=== PATIENT | male | born 1950 | race Caucasian/White ===

== ENCOUNTER 2021-05-01 15:10 | Inpatient (IN) | payer MEDICARE, OTHER ==
[~2021-05-01] VITALS: Ht 167.6 cm; Wt 54.0 kg
--- NOTE | 2021-05-01 15:41 | NUR ---
PT IS IN ROOM #2B. DR JACKSON EVALUATED THE PT.
--- NOTE | 2021-05-01 17:50 | NUR ---
REPORT WAS GIVEN TO RN MHU. PT WAS TRANSFERED TO ROOM #145 a.
[2021-05-01] MEDS ORDERED: LORAZEPAM 1 MG TABLET PO PRN (18:45)
[2021-05-01] MEDS ORDERED: MAG HYDROX/AL HYDROX/SIMETH 30 ML LIQUID UDC PO PRN (18:45)
[2021-05-01] MEDS ORDERED: MAGNESIUM HYDROXIDE 30 ML LIQUID UDC PO PRN (18:45)
[2021-05-01] MEDS ORDERED: ACETAMINOPHEN 325 MG TABLET PO PRN (18:45)
[2021-05-01] MEDS ORDERED: TEMAZEPAM 7.5 MG CAPSULE PO PRN (18:45)
[2021-05-01 18:54] VITALS: BP 165/72
--- NOTE | 2021-05-01 19:30 | NUR ---
GPS: ADMISSION NOTES> Patient is a 70 year old male , brought to the ED on a 5150 for DTS. Per hold, [facility]. Patient placed on hold by real estate utilization officer when patient made a statement of wanting to kill himself by banging head on the wall or going to the railway. Upon receiving patient, he is uncooperative and wanting to go over his dirty clothes, redirected patient. BEAD WIRE INSULATOR offered him shower and he comply. Upon face to face evaluation in his room, the patient adamantly denied being suicidal. The patient states of having no memory of the event. Patient noted with forgetfulness as he keeps on asking who the interviewer is and where he is at. Oriented patient on the safety rules in the unit and the Plan of care that will be initiated. Patient denies of any past medical history and refused any flu or PNA vaccine at this time. Patient skin intact. Along the interview, patient made a comment that he is tired and wanted to sleep. Patient went to bed w/o wearing his pants so instructed given to put his pants on , he just nodded however didn't comply. Patient safety kept in place with bed alarms on and s. Advisement given to patient together with patient rights handbook. Patient then on went to sleep.
[2021-05-02 08:00] VITALS: BP 153/86
[2021-05-02 08:01] LABS: BILIRUBIN,TOTAL 0.8 mg/dL (0.2-1.0); CREATININE 0.8 mg/dL (0.6-1.3); POTASSIUM 3.9 mmol/L (3.5-5.1); TOTAL PROTEIN, SERUM 6.7 g/dL (6.4-8.2)
[2021-05-02] MEDS: ESCITALOPRAM OXALATE 10 MG TABLET PO SCH (09:39)
--- NOTE | 2021-05-02 15:35 | NUR ---
patient denies he taking any medication at home. no family in the record.
[2021-05-02 16:54] VITALS: BP 105/47
--- NOTE | 2021-05-02 18:14 | NUR ---
Patient is awake and responding to his name, impaired judgment, resistant with nursing care, assisting him with ADL's, bizarre behavior, urinating on self, pacing in his room naked, redirected and reoriented during shift, setting limits, but unable to follow directions, pressured and slurred speech, gets easily angry when redirected, poor insight, continue to monitor for safety, continue with treatment plan.
[2021-05-02 20:20] VITALS: BP 142/59
[2021-05-02] MEDS: QUETIAPINE FUMARATE 25 MG TABLET PO SCH (20:51)
[2021-05-03 07:30] VITALS: BP 115/70
[2021-05-03 08:17] LABS: MEAN CORPUSCULAR HEMOGLOBIN 28.2 uug (23.8-33.4); MEAN CORPUSCULAR VOLUME 86.7 fL (73.0-96.2); PLATELET COUNT (AUTO) 216 K/uL (152-348)
[2021-05-03] MEDS: ESCITALOPRAM OXALATE 10 MG TABLET PO SCH (08:40)
--- NOTE | 2021-05-03 10:11 | NUR ---
GPS:RECEIVED PT ON BED, AWAKE AND VERBALLY RESPONSIVE WHEN ASKED. PT COMPLIANT WITH CARE AND MEDICATIONS. PT ISOLATIVE IN THE ROOM, COVERED HEAD WITH BLANKET. ENCOURAGED TO PARTICIPATE WITH GROUP THERAPY. DENIES ANY PAIN OR DISCOMFORT. DENIES ANY SUICIDAL IDEATION AT THIS TIME.
[2021-05-03 15:26] VITALS: BP 115/59
--- NOTE | 2021-05-03 18:21 | NUR ---
GPS; PT STAYED ON BED THE WHOLE TIME. NAKED AND DID NOT EVEN CARE TO GET DRESS AFTER ENCOURAGED. PT LOOKS WITHDRAWN, ISOLATIVE. DENIES ANY PAIN OR DISCOMFORT. DENIES SUICIDAL IDEATION. NO AGITATION AND NOT IN DISTRES AT THIS TIME. COMPLIANT WITH MEDS.
[2021-05-03 20:00] VITALS: BP 132/72
[2021-05-03] MEDS: QUETIAPINE FUMARATE 25 MG TABLET PO SCH (20:13)
[2021-05-04 07:47] VITALS: BP 139/80
[2021-05-04] MEDS: ESCITALOPRAM OXALATE 10 MG TABLET PO SCH (08:00)
--- NOTE | 2021-05-04 11:45 | NUR ---
JACQUELINE Admit Source: Pt is admitted to [facility] on a 5150 hold for danger to self. Pt was [place] by ambulance [place]. Pt stated [facility]. JACQUELINE was not able to gather contact information from pt or chart. Pt stated he is not in contact with his brother at all. Pt stated he is agreeable with a SNF upon discharge. JACQUELINE will contact [facility] ([phone]). JACQUELINE will continue to work with pt and MD to ensure a safe and proper discharge plan for the pt.
--- NOTE | 2021-05-04 11:45 | NUR ---
JACQUELINE Initial Discharge Note: Pt is admitted to [facility] on a 5150 hold for danger to self. [place] Pt stated his current residence is [facility]. JACQUELINE was not able to gather contact information from pt or chart. Pt stated he is not in contact with his brother at all. Pt stated he is agreeable with a SNF upon discharge. JACQUELINE will contact [facility] ([phone]). JACQUELINE will continue to work with pt and MD to ensure a safe and proper discharge plan for the pt.
--- NOTE | 2021-05-04 16:21 | NUR ---
Firearms Report: Sighter completed and submitted a [employer] firearms report for 5150 danger to self certifications. A copy of report has been placed in patient chart.
[2021-05-04 16:59] VITALS: BP 140/69
[2021-05-04] MEDS: ENSURE ENLIVE (VAN) 240 ML LIQUID PO SCH (17:37)
--- NOTE | 2021-05-04 17:50 | NUR ---
GPS: PT ALERT AND VERBALLY RESPONSIVE. SEEN PACING ALONG THE HALLWAY AT TIMES AND IN A CALM AND QUIET MANNER. PT DOES NOT SEEM TO BE ANXIOUS. ANSWERS BACK WHEN ASK BY THE SPOUT TENDER. DENIES SUICIDAL IDEATION. COMPLIANT WITH CARE AND MEDS.
[2021-05-04 19:55] VITALS: BP 135/61
[2021-05-04] MEDS: QUETIAPINE FUMARATE 25 MG TABLET PO SCH (20:08)
[2021-05-05 07:37] VITALS: BP 136/74
[2021-05-05] MEDS: ESCITALOPRAM OXALATE 10 MG TABLET PO SCH (08:22)
[2021-05-05] MEDS: ENSURE ENLIVE (VAN) 240 ML LIQUID PO SCH ×2 (09:10→18:26)
--- NOTE | 2021-05-05 11:20 | NUR ---
GPS: 14 DAY HOLD HEARING DONE AND PROBABLE CAUSE REMAINS ON GRAVE DISABILITY.
[2021-05-05 16:51] VITALS: BP 135/69
--- NOTE | 2021-05-05 18:21 | NUR ---
GPS: PT SEEN AROUND 1320 WALKING ALONG THE HALLWAY WEARING MULTIPLE SHIRTS AND PANTS. PT NOTED TO BE NAKED WHEN HE'S IN HIS ROOM. ENCOURAGED TO PARTICIPATE WITH GROUP THERAPY. COMPLIANT WITH CARE AND MEDICATIONS. NO AGITATION NOTED. DENIES ANY SUICIDAL/HOMICIDAL IDEATION.
[2021-05-05 20:00] VITALS: BP 133/61
[2021-05-05] MEDS: QUETIAPINE FUMARATE 25 MG TABLET PO SCH (20:48)
--- NOTE | 2021-05-06 05:06 | NUR ---
Received isolative, but pleasant upon approach. Behavior is appropriate for situation. Compliant with medications and staff direction. No episodes of wandering around, undressed. Slept well most of the night. No distress noted.
[2021-05-06 07:30] VITALS: BP 130/68
[2021-05-06] MEDS: ESCITALOPRAM OXALATE 10 MG TABLET PO SCH (08:45)
[2021-05-06] MEDS: BENZTROPINE MESYLATE 1 MG TABLET PO SCH ×2 (08:45→17:34)
[2021-05-06] MEDS: ENSURE ENLIVE (VAN) 240 ML LIQUID PO SCH ×2 (08:47→17:34)
[2021-05-06 13:00] VITALS: BP 134/74
--- NOTE | 2021-05-06 16:00 | NUR ---
Received patient sleeping in his room. A/O X 2 to person, place. Pt. is quiet, calm, confused at times, intrusive and needs to be redirected. Patient is either naked or overdressed with lots of layers of clothing, requires more than minimal assistance with ADL. Compliant with medications. Vital signs within normal limits. Denies SI/HI AH/VH. Reassurance given. Fall and safety precautions implemented.
[2021-05-06 20:28] VITALS: BP 129/70
[2021-05-06] MEDS: QUETIAPINE FUMARATE 25 MG TABLET PO SCH (21:05)
--- NOTE | 2021-05-07 05:47 | NUR ---
Received to care, in his room. Lying nude under the sheets. He stated he likes to sleep like that, and he was asked to please put on clothing, when outside his room. He was assisted with a shower, and was dressed appropriately. Compliant with his medications. He was observed walking around his room nude, but did not come out in the hallway without being dressed(he has no room mates currently). Later in the night, he was found in a females room nude, standing next to her bed, while she exposed herself. He was then redirected back to his room, and got under the covers. When questioned about the incident, he said that he "wandered into the wrong room". When questioned further, he refused to elaborate, asking to be left alone, so he can sleep. He then went to sleep,
[2021-05-07 07:30] VITALS: BP 115/56
[2021-05-07] MEDS: BENZTROPINE MESYLATE 1 MG TABLET PO SCH ×2 (08:11→16:04)
[2021-05-07] MEDS: ESCITALOPRAM OXALATE 10 MG TABLET PO SCH (08:12)
[2021-05-07] MEDS: ENSURE ENLIVE (VAN) 240 ML LIQUID PO SCH ×2 (08:12→16:04)
[2021-05-07 16:00] VITALS: BP 119/56
--- NOTE | 2021-05-07 17:56 | NUR ---
PT NOTED FREQUENTLY GOING INTO FEMALE ROOM/BED 141A ATTEMPTING TO SEXUALLY AND INAPPROPRIATELY GROPE AND TOUCH PT, TELLING HER "I LOVE YOU BABY, YOU KNOW I LOVE YOU." PT WILL HAVE AN ERECTION WHEN GOING INTO PT'S ROOM AT TIMES. INSTRUCTED TO STAY AWAY FROM ENTERING ROOM AND TOUCHING PT, PT DOES NOT VERBALLY RESPOND, HE JUST NODS HIS HEAD AND GOES BACK TO HIS ROOM AND CLOSES DOOR. WILL CONTINUE CLOSE OBSERVATION OF PT.
[2021-05-07 20:00] VITALS: BP 148/78
[2021-05-07] MEDS ORDERED: QUETIAPINE FUMARATE 100 MG TABLET PO SCH (21:00)
--- NOTE | 2021-05-08 05:27 | NUR ---
Received to care, isolative in his room, continues to walk around his room, naked. Had one episode of attempting to walk down hallway, and enter into a female peers room, but was stopped by staff, and redirected back to his room. Continues to sleep intermittently, due to a noisy room mate. No distress, noted.
[2021-05-08] MEDS: BENZTROPINE MESYLATE 1 MG TABLET PO SCH ×2 (08:08→16:54)
[2021-05-08] MEDS: ENSURE ENLIVE (VAN) 240 ML LIQUID PO SCH ×2 (08:08→16:55)
[2021-05-08 08:35] VITALS: BP 122/65
--- NOTE | 2021-05-08 15:33 | NUR ---
Received patient sleeping in his room. A/O X 3 to person, place, environment. Pt. is hypersexual, intrusive, trying to get in a female room and get in bed with her while aroused with his pants down. Female patient spreads her legs every time she sees this patient. Patient verbalizes "I love you" and she smiles. Patient is obsessed, watches his surroundings and check if anyone is watching him, so he can sneak in and be with her. Patient requires to be redirected all the time. Patient also masturbates in his bed few times per day. Reality orientation provided. Patient is compliant with medications. Denies SI/HI AH/VH. Denies pain or any discomfort. Fall and safety precautions implemented.
[2021-05-08 16:06] VITALS: BP 122/72
--- NOTE | 2021-05-08 16:08 | NUR ---
PT IS QUIET AND RESERVED, BUT NOTED WITH HYPERSEXUAL BEHAVIOR. FREQUENTLY GOES TO PT IN ROOM 141A WITH AN ERECTION, AND ATTEMPTS TO GET INTO HER BED AND ATTEMPTS TO TOUCH HER INAPPROPRIATELY. PT WILL SAY HE WANTS TO WALK UP AND DOWN THE HALLWAY FOR EXERCISE, AND NOTED ON CAMERA LOOKING AROUND TO SEE IF ANYONE IS LOOKING. WHEN HE BELIEVES NO ONE IS WATCHING, PT WILL RUN INTO 141A'S ROOM. HE WILL EVEN OPEN THE DOOR AND CLOSE IT BEHIND HIM. REQUIRES EXTENSIVE AND FREQUENT REDIRECTION. HE, AT TIMES, WILL REFUSE TO LEAVE THE ROOM AND NEEDS TO PHYSICALLY BE REMOVED FROM PT'S ROOM BY STAFF. 1:1 SITTER ORDERED. DIRECTOR JEAN CLAUDE NOTIFIED AND EMBALMER APPRENTICE WILL NOTIFIED OF PT'S BEHAVIOR AND SITTER ORDER.
--- NOTE | 2021-05-08 16:44 | NUR ---
Dr. Mullins called the unit because he was notified by Yvette about this patient's hypersexual behavior, and he was informed about all medications patient is taking and doses, Dr. Mullins concludes patient is well medicated. Dr. Mullins also asked to redirect patient and tell him that he is going to long-term for raping if he intents to get in female's room and have sex with her. Dr. Mullins also asked to be notified if patient is not redirectable.
[2021-05-08] MEDS: QUETIAPINE FUMARATE 25 MG TABLET PO SCH (16:55)
[2021-05-08] MEDS ORDERED: QUETIAPINE FUMARATE 25 MG TABLET PO SCH (17:00)
[2021-05-08 20:22] VITALS: BP 132/64
[2021-05-08] MEDS: QUETIAPINE FUMARATE 100 MG TABLET PO SCH (22:08)
[2021-05-09 07:30] VITALS: BP 90/50
[2021-05-09] MEDS: BENZTROPINE MESYLATE 1 MG TABLET PO SCH ×2 (08:58→16:46)
[2021-05-09] MEDS: DIVALPROEX 250 MG TABLET.DR PO SCH ×2 (08:58→16:46)
[2021-05-09] MEDS: QUETIAPINE FUMARATE 25 MG TABLET PO SCH ×3 (08:58→16:46)
[2021-05-09] MEDS: ENSURE ENLIVE (VAN) 240 ML LIQUID PO SCH ×2 (08:59→17:34)
[2021-05-09 15:20] VITALS: BP 102/72
--- NOTE | 2021-05-09 15:52 | NUR ---
Received patient sleeping in his room. A/O X 2 -3 to person, place. Pt. is calm, cooperative with care and compliant with medications, respond to others, likes to be naked and needs to be watched for inappropriate sexual behaviors. Ambulates independently. Requires minimal assistance with ADL. Pt. is encourage to vent feelings. Fall and safety precautions implemented.
[2021-05-09 20:03] VITALS: BP 130/65
[2021-05-09] MEDS: QUETIAPINE FUMARATE 100 MG TABLET PO SCH (20:18)
--- NOTE | 2021-05-10 05:40 | NUR ---
GPS: Remain isolative,cooperative with meds and care. pleasant upon approach. Behavior is appropriate for situation. No episodes of wandering around, undressed. Slept well most of the night. No distress noted. continue plan of care.
--- NOTE | 2021-05-10 05:57 | NUR ---
slept 5 hrs through the night.
[2021-05-10 07:30] VITALS: BP 151/80
[2021-05-10] MEDS: BENZTROPINE MESYLATE 1 MG TABLET PO SCH ×2 (09:02→16:29)
[2021-05-10] MEDS: QUETIAPINE FUMARATE 25 MG TABLET PO SCH ×3 (09:02→16:29)
[2021-05-10] MEDS: DIVALPROEX 250 MG TABLET.DR PO SCH ×2 (09:02→16:29)
[2021-05-10] MEDS: ENSURE ENLIVE (VAN) 240 ML LIQUID PO SCH ×2 (09:03→16:30)
[2021-05-10 15:02] VITALS: BP 145/70
--- NOTE | 2021-05-10 18:37 | NUR ---
The patient remained stable. Denies SI. Denies pain. Frequent visual checks done. no distress identified during the shift. all needs attended. safety measures maintained. will endorse to the next shift for continuity of care.
[2021-05-10 20:00] VITALS: BP 126/70
[2021-05-10] MEDS: QUETIAPINE FUMARATE 100 MG TABLET PO SCH (20:32)
--- NOTE | 2021-05-11 06:44 | NUR ---
Patient calm and cooperative with care. Disrobes when in bed. Due meds given and taken. Needs assessed and attended to. Safety measure maintained.
[2021-05-11 07:30] VITALS: BP 143/79
[2021-05-11] MEDS: ENSURE ENLIVE (VAN) 240 ML LIQUID PO SCH ×2 (08:53→17:00)
[2021-05-11] MEDS: DIVALPROEX 250 MG TABLET.DR PO SCH ×2 (08:53→22:48)
[2021-05-11] MEDS: BENZTROPINE MESYLATE 1 MG TABLET PO SCH ×2 (08:53→22:48)
[2021-05-11] MEDS: QUETIAPINE FUMARATE 25 MG TABLET PO SCH ×3 (08:53→17:00)
[2021-05-11] MEDS ORDERED: TEMAZEPAM 7.5 MG CAPSULE PO PRN (09:45)
[2021-05-11 16:00] VITALS: BP 115/69
--- NOTE | 2021-05-11 19:00 | NUR ---
Denies SI. Denies pain. Compliant with meds. Frequent visual checks done. no distress identified during the shift. all needs attended. safety measures maintained. will endorse to the next shift for continuity of care.
[2021-05-11 20:00] VITALS: BP 127/68
--- NOTE | 2021-05-11 20:26 | NUR ---
Unable to give 1700H-1800H due meds due to no access to [facility]ell.
[2021-05-11] MEDS: QUETIAPINE FUMARATE 100 MG TABLET PO SCH (22:51)
--- NOTE | 2021-05-12 06:53 | NUR ---
The patient denies SI. Denies pain. He slept 4.45 hrs. The patient keeps closing the door to his room,walking inside the room naked, needs to be redirected. Frequent visual checks done. no distress identified during the shift. all needs attended. safety measures maintained. will endorse to the next shift for continuity of care.
[2021-05-12 07:30] VITALS: BP 138/82
[2021-05-12] MEDS ORDERED: QUETIAPINE FUMARATE 25 MG TABLET PO SCH (09:00)
[2021-05-12] MEDS: BENZTROPINE MESYLATE 1 MG TABLET PO SCH (09:55)
[2021-05-12] MEDS: ENSURE ENLIVE (VAN) 240 ML LIQUID PO SCH (09:55)
[2021-05-12] MEDS: DIVALPROEX 250 MG TABLET.DR PO SCH (09:55)
--- NOTE | 2021-05-12 11:15 | NUR ---
PT SEEN PACING THE HALLWAY, ATTENTION SEEKER AT TIMES. SEEN NAKED INSIDE HER ROOM. GOES TO ACTIVITY ROOM TO WATCH TV AND PARTICIPATE WITH GROUP THERAPY. NO AGITATION AT THIS TIME. COMPLIANT WITH CARE AND MEDS. DENIES ANY SUICIDAL IDEATION.
--- NOTE | 2021-05-12 13:34 | NUR ---
JACQUELINE Discharge Note: Pt will be discharged to [facility] [address] [address] ([phone]) via ambulance transportation at 3PM. [facility]: [facility] ([phone]) JACQUELINE spoke with [facility] in admissions ([phone]) who stated they are ready to accept the pt today. Pt is aware and agreeable with discharge plans. Pt does not have family contact. Pt is alert and oriented x1(name), is unable to plan for self-care at this time; however, is willing to accept care at SNF. Pt denies any suicidal or homicidal ideation. Pt will follow-up at the facility with Psychiatrist, Dr. Mullins and Human Resources Supervisor, Dr. Mayfield. Pt presents with calm mood and congruent affect.
--- NOTE | 2021-05-12 15:11 | NUR ---
PT DISCHARGED TODAY PER DR MARTÍNEZ ORDER. Pt will be discharged to [facility] [address] [place] [address] ([phone]) via ambulance transportation at 3PM. PT DENIES ANY PAIN OR DISCOMFORT. PT COVID TEST DONE AND WAS NEGATIVE. SPOKE TO ELFEGO, ADMITTING NURSE ABOUT PT TRANSFER. PT PLEASANT, ALERT AND ORIENTED X3. PT EXCITED WITH DISCHARGE. PT DENIES SUICIDAL/ HOMICIDAL IDEATION. ALL BELONGINGS SIGNED AND GIVEN TO PT. Addendum: 05/12/21 at 1519 by IDALIA MCKEON RN DR MARTÍNEZ AND SUSANNE CARLSON NP MADE AWARE OF THE DISCHARGE AND WILL BE FF UP THE PT AT THE FACILITY.
[2021-05-12] MEDS ORDERED: QUETIAPINE FUMARATE 200 MG TABLET PO SCH (21:00)
== END 2021-05-12 15:00 | DRG 885 ==
LOC: ER 15:12 → GPS 17:05
PROVIDERS: ADMIT Psychiatry & Neurology Psychiatry
DX: F39 Unspecified mood [affective] disorder (principal); F01.50 Vascular dementia, unspecified severity, without behavioral disturbance, psychotic disturbance, mood disturbance, and anxiety; L03.116 Cellulitis of left lower limb; R45.851 Suicidal ideations; Z68.1 Body mass index [BMI] 19.9 or less, adult; E44.0 Moderate protein-calorie malnutrition; I10 Essential (primary) hypertension; E03.8 Other specified hypothyroidism; M19.012 Primary osteoarthritis, left shoulder; Z20.822 Contact with and (suspected) exposure to COVID-19; F29 Unspecified psychosis not due to a substance or known physiological condition; R03.0 Elevated blood-pressure reading, without diagnosis of hypertension; E03.9 Hypothyroidism, unspecified; I51.7 Cardiomegaly; F31.2 Bipolar disorder, current episode manic severe with psychotic features; E88.09 Other disorders of plasma-protein metabolism, not elsewhere classified; Z73.6 Limitation of activities due to disability; G20 Parkinson's disease
CPT/HCPCS: 36415; 70450; 71045; 80164; 84443; 84481; 85025; 93005; 97161; A4663; J3490

== ENCOUNTER 2024-07-10 19:11 | Emergency (ER) | payer OTHER, MEDICAID ==
[~2024-07-10] VITALS: Ht 175.3 cm; Wt 68.0 kg
[2024-07-10] MEDS ORDERED: CHOL200010 PO (19:30)
[2024-07-10] MEDS ORDERED: RISP3TAB5 PO (19:30)
[2024-07-10] MEDS ORDERED: ACET-3117 PO (19:30)
[2024-07-10] MEDS ORDERED: ATOR40TA PO (19:30)
[2024-07-10] MEDS ORDERED: FERR-56 PO (19:30)
[2024-07-10] MEDS ORDERED: DIVA125C2 PO (19:30)
[2024-07-10] MEDS ORDERED: MULT-594 PO (19:30)
[2024-07-10 19:33] LABS: BASOPHILS % (AUTO) 0.4 % (0.0-2.0); EOSINOPHILS # (AUTO) 0.3 K/uL (0.0-0.7); EOSINOPHILS % (AUTO) 3.3 % (0.0-7.0); HEMATOCRIT 41.7 % (36.7-47.1); HEMOGLOBIN 13.7 g/dL (12.5-16.3); LYMPHOCYTES # (AUTO) 1.6 K/uL (0.8-4.8); LYMPHOCYTES % (AUTO) 16.2 % (20.5-51.5); MEAN CORPUSCULAR HEMOGLOBIN 28.4 uug (23.8-33.4); MEAN CORPUSCULAR HGB CONC 33 g/dL (32.5-36.3); MEAN CORPUSCULAR VOLUME 86.4 fL (73.0-96.2); MONOCYTES # (AUTO) 0.7 K/uL (0.1-1.30); MONOCYTES % (AUTO) 7.2 % (0.0-11.0); NEUTROPHILS % (AUTO) 72.9 % (38.5-71.5); PLATELET COUNT (AUTO) 221 K/uL (152-348); RED BLOOD CELL COUNT(AUTO) 4.83 MIL/uL (4.06-5.63); RED CELL DISTRIBUTION WIDTH 16.3 % (12.1-16.2); WHITE BLOOD COUNT (AUTO) 9.6 K/uL (3.6-10.2)
[2024-07-10 19:36] LABS: *BILIRUBIN,URIN NEGATIVE (NEGATIVE); *BLOOD, URINE 2+ (NEGATIVE); *CLARITY,URINE CLEAR (CLEAR); *COLOR,URINE YELLOW (YELLOW); *KETONES,URINE TRACE (NEGATIVE); *PROTEIN,URINE NEGATIVE (NEGATIVE); *UROBILINOGEN,URINE 0.2 E.U./dl (NORMAL); LEUKOCYTE ESTERASE ,URINE NEGATIVE (NEGATIVE); NITRITE, URINE NEGATIVE (NEGATIVE); PH,URINE 5.5 (5.0-8.0); UGLUCOSE NEGATIVE (NEGATIVE)
[2024-07-10 19:37] LABS: DIFFERENTIAL COMMENT 1
[2024-07-10 19:42] LABS: CALCIUM 9.2 mg/dL (8.5-10.1); CARBON DIOXIDE 29 mmol/L (21-32); CHLORIDE 105 mmol/L (98-107); GLUCOSE 87 mg/dL (74-106); POTASSIUM 4.3 mmol/L (3.5-5.1); SODIUM SERUM 143 mmol/L (136-145); UREA NITROGEN, BLOOD 18 mg/dL (7-18)
[2024-07-10 19:43] LABS: AMMONIA 10 umol/L (11-32)
[2024-07-10 19:44] LABS: ETHANOL < 3 MG/DL (0-10)
[2024-07-10 19:48] LABS: ACETAMINOPHEN < 2.0 ug/mL (10-30); ALANINE AMINOTRANSFERASE 21 U/L (16-63); ALBUMIN 3.6 g/dL (3.4-5.0); ALKALINE PHOSPHATASE 79 U/L (50-136); ASPARTATE AMINOTRANSFERASE 22 U/L (15-37); BILIRUBIN,DIRECT 0.1 mg/dL (0.0-0.2); BILIRUBIN,TOTAL 0.5 mg/dL (0.2-1.0); TOTAL PROTEIN, SERUM 7.6 g/dL (6.4-8.2)
[2024-07-10 19:49] LABS: *AMPHETAMINE, URINE NEGATIVE (NEGATIVE); *BARBITURATE, URINE NEGATIVE (NEGATIVE); *BENZODIAZEPINE, URINE NEGATIVE (NEGATIVE); *CANNABINOID, URINE NEGATIVE (NEGATIVE); *COCCAINE, URINE NEGATIVE (NEGATIVE); *OPIATE, URINE NEGATIVE (NEGATIVE); *PHENCYCLIDINE SCREEN,URINE NEGATIVE (NEGATIVE); FENTANYL, URINE NEGATIVE (NEGATIVE)
[2024-07-10 19:53] LABS: SQUAMOUS EPITHELIAL CELL,UR FEW /HPF (NONE SEEN); WBC,URINE 0-3 /HPF (0-3)
[2024-07-10 19:55] LABS: THYROID STIMULATING HORMONE 7.948 mIU/mL (0.358-3.740)
[2024-07-10 19:55] LABS: BACTERIA,URINE NONE SEEN /HPF (NONE SEEN)
[2024-07-11 02:22] VITALS: BP 121/79; TEMP 97.7; O2SAT 98
== END 2024-07-11 02:22 ==
LOC: ER 19:16
DX: Z00.8 Encounter for other general examination (principal); R45.6 Violent behavior; F29 Unspecified psychosis not due to a substance or known physiological condition; R06.00 Dyspnea, unspecified; R07.9 Chest pain, unspecified; E78.5 Hyperlipidemia, unspecified; F25.9 Schizoaffective disorder, unspecified; G20.A1 Parkinson's disease without dyskinesia, without mention of fluctuations; Z79.899 Other long term (current) drug therapy
CPT/HCPCS: 36415; 70450; 71045; 84443; 84484; 85025; 85730; 87086; A4606; A4663; G0480